=== PATIENT | female | born 1990 | race Hispanic/Latino ===

== ENCOUNTER 2017-01-13 00:18 | Emergency (ER) | payer SELFPAY ==
[2017-01-13] MEDS ORDERED: cefTRIAXone\\ROCEPHIN 1 GM VIAL ONE (01:46)
[2017-01-13] MEDS ORDERED: Lidocaine 1% 20 ML MDV ONE (01:46)
[2017-01-13] MEDS ORDERED: traMADol HCl 50 MG TAB ONE (01:46)
[2017-01-13] MEDS ORDERED: Acetaminophen 500 MG TAB ONE (01:46)
[2017-01-13] MEDS ORDERED: Ibuprofen 800 MG TAB ONE (01:46)
== END 2017-01-13 02:30 | disposition home or self-care (01) ==
LOC: NAV ERS 00:18
DX: L03.116 Cellulitis of left lower limb (principal)
CPT/HCPCS: 96372; J0696; J2001